=== PATIENT | male | born 1955 | race Asian ===

== ENCOUNTER 2020-04-26 13:57 | Outpatient (CLI) | payer OTHER ==
[~2020-04-26] VITALS: Ht 170.2 cm; Wt 73.0 kg
[2020-04-26 14:15] VITALS: BP 126/77
--- NOTE | 2020-04-26 17:30 | Consultation ---
DATE OF CONSULTATION: 04/26/2020 GASTROLOGY CONSULTATION CHIEF COMPLAINT: Referral for screening colonoscopy. PAST MEDICAL HISTORY: None. PAST SURGICAL HISTORY: None. MEDICATIONS: None. FAMILY HISTORY: No family history of GI malignancies. SOCIAL HISTORY: The patient drinks alcohol socially. Denies any IV drug abuse. Denies tobacco abuse. ALLERGIES: No known allergies. REVIEW OF SYSTEMS: A 10-point review of systems was performed and was negative. PHYSICAL EXAMINATION: VITAL SIGNS: Temperature 97.4, blood pressure 126/77, pulse 87, respirations 20. Height is 5 feet 7 inches, weight is 151. HEENT: Normocephalic, atraumatic. Sclerae anicteric. NECK: Supple. No evidence of obvious lymphadenopathy. CARDIOVASCULAR: Regular rate and rhythm. Plus S1, S2. LUNGS: Clear breath sounds bilaterally. ABDOMEN: Soft, nontender. No rebound. No guarding. No peritoneal sign. EXTREMITIES: No cyanosis. No clubbing. No edema. ASSESSMENT AND PLAN: A 64-year-old male who needs screening colonoscopy. We explained the procedure to him. The risks and benefits of the procedure were explained to him. Prep was explained to him. We will schedule him as soon as authorization is obtained. Loy Etienne M.D. DR: DARREN JOB#: [id number] CC:
== END 2020-04-26 15:52 | disposition home or self-care (01) ==
LOC: PAN 13:57
DX: Z00.00 Encounter for general adult medical examination without abnormal findings (principal)
CPT/HCPCS: G0463